=== PATIENT | female | born 1940 | race Caucasian/White ===

== ENCOUNTER 2019-08-15 08:05 | Outpatient (CLI) | payer MEDICARE, OTHER, SELFPAY ==
--- NOTE | 2019-08-15 08:27 | MM_ITS ---
WS: [id number] BILATERAL DIGITAL SCREENING MAMMOGRAPHY WITH CAD CLINICAL INFORMATION: SCREEN HISTORY: Screening mammogram. No current complaints. COMPARISON: August 12, 2018 TECHNIQUE: Bilateral CC and MLO views. FINDINGS: The breasts are composed of heterogeneous fibroglandular density tissue, which can limit the detectio n of small underlying mass lesions. No suspicious mass, asymmetry, calcifications, or architectural d istortion. No evidence of malignancy. Punctate and lucent centered calcifications. Vascular calcifica tion. MM/[place] [id number] IMPRESSION: BI-RADS: 2-Benign FOLLOW UP: 1 Year Follow-up Recommend return to annual screening mammography.
== END 2019-08-15 08:06 | disposition home or self-care (01) ==
LOC: RADSHAW 08:18
PROVIDERS: PCP Internal Medicine; Visit Provider Internal Medicine
DX: Z12.31 Encounter for screening mammogram for malignant neoplasm of breast (principal)
CPT/HCPCS: 77067

== ENCOUNTER 2020-08-16 08:10 | Outpatient (CLI) | payer MEDICARE, OTHER, SELFPAY ==
--- NOTE | 2020-08-16 08:22 | MM_ITS ---
WS: [id number] BILATERAL SCREENING DIGITAL MAMMOGRAM WITH CAD HISTORY: SCREENING COMPARISON: 08/15/2019 and 08/12/2018 Bilateral CC and MLO views submitted. Computer aided detection analyzed. Breast composition: There are scattered areas of fibroglandular density. No suspicious masses, microc alcifications or architectural distortion. Benign calcifications RIGHT breast. MM/[place] [id number] IMPRESSION: BI-RADS: 2-Benign FOLLOW UP: 1 Year Follow-up
== END 2020-08-16 08:11 | disposition home or self-care (01) ==
LOC: RADSHAW 08:16
PROVIDERS: PCP Internal Medicine; Visit Provider Internal Medicine
DX: Z12.31 Encounter for screening mammogram for malignant neoplasm of breast (principal)
CPT/HCPCS: 77067

== ENCOUNTER 2021-08-17 07:54 | Outpatient (CLI) | payer MEDICARE, OTHER, SELFPAY ==
--- NOTE | 2021-08-17 07:58 | MM_ITS ---
WS: [id number] BILATERAL SCREENING DIGITAL BREAST TOMOSYNTHESIS MAMMOGRAM WITH CAD HISTORY: SCREENING COMPARISON: 08/16/2020 and 08/15/2019 Bilateral CC and MLO views with tomosynthesis and synthetic mammography submitted. Computer aided det ection analyzed. Breast composition: The breasts are heterogeneously dense, which may obscure small masses. No suspici ous masses, microcalcifications or architectural distortion. Benign calcifications RIGHT breast. MM/[place] [id number] IMPRESSION: BI-RADS: 2-Benign FOLLOW UP: 1 Year Follow-up
== END 2021-08-17 07:55 | disposition home or self-care (01) ==
LOC: RADSHAW 07:56
PROVIDERS: PCP Internal Medicine; Visit Provider Internal Medicine
DX: Z12.31 Encounter for screening mammogram for malignant neoplasm of breast (principal)
CPT/HCPCS: 77063; 77067

== ENCOUNTER 2021-08-17 12:41 | Outpatient (CLI) | payer MEDICARE, OTHER, SELFPAY ==
--- NOTE | 2021-08-17 | XR_ITS ---
WS: [email or web address] AP standing views of both knees, 08/17/2021 Clinical Data: MEDIAL LT KNEE PAIN, STIFFNESS Comparison: None. Findings: There is bilateral medial joint compartment narrowing. There are medial spurs of the tibial plateaus and femoral condyles bilaterally. No fractures are seen on the AP views. The soft tissues are normal. XR/[place] [id number] Impression: Bilateral medial joint compartment narrowing of the knees.
== END 2021-08-17 12:42 | disposition home or self-care (01) ==
LOC: RADOUTREAD 12:44
PROVIDERS: PCP Internal Medicine; Visit Provider Internal Medicine
DX: M25.562 Pain in left knee (principal)

== ENCOUNTER 2022-08-18 07:39 | Outpatient (CLI) | payer MEDICARE, OTHER, SELFPAY ==
--- NOTE | 2022-08-18 07:53 | MM_ITS ---
WS: [id number] BILATERAL SCREENING DIGITAL TOMOSYNTHESIS MAMMOGRAM WITH CAD HISTORY: SCREENING COMPARISON: 08/17/2021, 08/16/2020 and 08/15/2019 Bilateral CC and MLO views with tomosynthesis and synthetic mammography submitted. Computer aided det ection analyzed. Breast composition: There are scattered areas of fibroglandular density. No suspicious masses, microc alcifications or architectural distortion. MM/[place] [id number] IMPRESSION: BI-RADS: 1-Negative FOLLOW UP: 1 Year Follow-up
== END 2022-08-18 07:40 | disposition home or self-care (01) ==
LOC: RAD 07:43
PROVIDERS: PCP Internal Medicine; Visit Provider Internal Medicine
DX: Z12.31 Encounter for screening mammogram for malignant neoplasm of breast (principal)
CPT/HCPCS: 77063; 77067

== ENCOUNTER 2023-01-09 13:25 | Outpatient (CLI) | payer MEDICARE, OTHER, SELFPAY ==
--- NOTE | 2023-01-09 13:33 | XR_ITS ---
WS: [email or web address] DEXA (DUAL ENERGY X-RAY ABSORPTIOMETRY) Bone mineral density was performed using a [employer] machine. HISTORY: POSTMENOPAUSAL COMPARISON: None available. Lumbar spine BMD (L1-L4): 1.090 g/cm2 T score: -0.8 Z score: 1.2 Total hip BMD: Left: 0.898 g/cm2. T score: -0.9 Z score: 1.2 Right: 0.884 g/cm2. T score: -1.0 Z score: 1.1 10 year probability of a major osteoporotic fracture is 15.1%. IMPRESSION: OSTEOPENIA based upon the WHO classification for females.
== END 2023-01-09 13:26 | disposition home or self-care (01) ==
PROVIDERS: PCP Internal Medicine; Visit Provider Internal Medicine
DX: Z78.0 Asymptomatic menopausal state (principal); M85.80 Other specified disorders of bone density and structure, unspecified site
CPT/HCPCS: 77080

== ENCOUNTER 2023-02-09 07:45 | Outpatient (CLI) | payer MEDICARE, OTHER, SELFPAY ==
--- NOTE | 2023-02-09 07:48 | CT_ITS ---
WS: [id number] CT ABDOMEN AND PELVIS NONCONTRAST HISTORY: CYSTITIS W/HEMATURIA TECHNIQUE: Imaging performed through the abdomen and pelvis. Coronal and sagittal reformats are submi tted. All CT scans at [facility] use at least one of these dose optimization techniques: auto mated exposure control; mA and/or kV adjustment per patient size (includes targeted exams where dose is matched to clinical indication); or iterative reconstruction. DLP: 269.19 mGy.cm COMPARISON: None available. Lower thorax: Diaphragmatic herniation posterior on the RIGHT contains fat only. No pneumonia. Small hiatal hernia. Mild cardiac enlargement. Liver: Normal size liver. Lobulated 8 mm low-attenuation mass in the RIGHT lobe. No bile duct dilatat ion. Gallbladder: Normal gallbladder. No pericholecystic fluid or cholelithiasis. No gallbladder wall thic kening. Pancreas: Normal size and attenuation. Normal pancreatic duct. No pancreatitis or mass. Spleen: Normal. Adrenal glands: Normal. No mass. Right kidney: Cystic mass upper pole 4.3 x 3.2 cm. No renal obstruction or calcification. Left kidney: No obstruction. Low-attenuation mass mid kidney measures 1.3 x 1.3 cm. No calcifications . Aorta: Normal abdominal aorta, no aneurysm or atherosclerosis. No free fluid, intraperitoneal air or significant lymphadenopathy. GI tract: Normal noncontrast imaging of the stomach, small bowel and colon. No obstruction or wall th ickening. Normal appendix. Abdominal wall: Negative. No hernia. Pelvis: Urinary bladder is well distended. There is a small RIGHT lateral bladder diverticulum. There is also mild asymmetric thickening of the RIGHT lateral urinary bladder wall. This is asymmetric to the LEFT side and should be further evaluated. Wall thickening measures up to 2.9 mm. Osseous structures: Thoracolumbar scoliosis. IMPRESSION: 1. No renal obstruction or ureteral calcification. 2. Small RIGHT lateral bladder wall diverticulum. 3. Mild asymmetric soft tissue thickening involving the RIGHT lateral urinary bladder. This should b e further evaluated by cystoscopy for possible neoplasm. Cystitis also within the differential. 4. Bilateral renal low-attenuation masses. These can be further evaluated by ultrasound to confirm c yst. 5. Mild cardiomegaly.
== END 2023-02-09 07:46 | disposition home or self-care (01) ==
LOC: RAD 07:45
PROVIDERS: PCP Internal Medicine; Visit Provider Internal Medicine
DX: N30.01 Acute cystitis with hematuria (principal); N32.3 Diverticulum of bladder; N32.9 Bladder disorder, unspecified; N28.89 Other specified disorders of kidney and ureter
CPT/HCPCS: 74176

== ENCOUNTER 2023-03-08 07:57 | Outpatient (CLI) | payer MEDICARE, OTHER, SELFPAY ==
--- NOTE | 2023-03-08 08:03 | MM_ITS ---
WS: [email or web address] BILATERAL 3D TOMOSYNTHESIS DIGITAL DIAGNOSTIC MAMMOGRAPHY WITH CAD CLINICAL INFORMATION: BREAST PAIN HISTORY: LEFT nipple discharge COMPARISON: 08/18/2022 TECHNIQUE: Bilateral CC, MLO, and ML views. FINDINGS: The breasts are composed of heterogeneous fibroglandular density, which can limit the detection of sm all underlying mass lesions. Palpable marker overlying the LEFT nipple. No definite new mammographic abnormalities in this location. Small ovoid nodule central LEFT breast stable over multiple prior exa minations dating back to 2016. Ultrasound is pending. RIGHT breast is unchanged. ULTRASOUND BREAST LEFT TECHNIQUE: Ultrasound left breast focused area of concern. CLINICAL INFORMATION: BREAST PAIN FINDINGS: Ultrasound LEFT breast at the areola. Dilated ducts seen in the area of concern deep to the areola. A ssociated debris. No evidence of intraductal mass or lesion. Findings are benign. Recommend return to annual screening mammography. IMPRESSION: MM/[place] [id number] BI-RADS: 2-Benign FOLLOW UP: 1 Year Follow-up Recommend return to annual screening mammography.
--- NOTE | 2023-03-08 08:56 | US_ITS ---
WS: [email or web address] BILATERAL 3D TOMOSYNTHESIS DIGITAL DIAGNOSTIC MAMMOGRAPHY WITH CAD CLINICAL INFORMATION: BREAST PAIN HISTORY: LEFT nipple discharge COMPARISON: 08/18/2022 TECHNIQUE: Bilateral CC, MLO, and ML views. FINDINGS: The breasts are composed of heterogeneous fibroglandular density, which can limit the detection of sm all underlying mass lesions. Palpable marker overlying the LEFT nipple. No definite new mammographic abnormalities in this location. Small ovoid nodule central LEFT breast stable over multiple prior exa minations dating back to 2016. Ultrasound is pending. RIGHT breast is unchanged. ULTRASOUND BREAST LEFT TECHNIQUE: Ultrasound left breast focused area of concern. CLINICAL INFORMATION: BREAST PAIN FINDINGS: Ultrasound LEFT breast at the areola. Dilated ducts seen in the area of concern deep to the areola. A ssociated debris. No evidence of intraductal mass or lesion. Findings are benign. Recommend return to annual screening mammography. IMPRESSION: US/US breast LT limited* [id number] BI-RADS: 2-Benign FOLLOW UP: 1 Year Follow-up Recommend return to annual screening mammography.
== END 2023-03-08 07:58 | disposition home or self-care (01) ==
PROVIDERS: PCP Internal Medicine; Visit Provider Internal Medicine
DX: N64.4 Mastodynia (principal)
CPT/HCPCS: 76642; 77062; G0279

== ENCOUNTER 2023-05-31 09:11 | Outpatient (CLI) | payer MEDICARE, OTHER, SELFPAY ==
--- NOTE | 2023-05-31 09:23 | CT_ITS ---
WS: [id number] CT ABDOMEN AND PELVIS WITH AND WITHOUT CONTRAST, 3 phase. HISTORY: RENAL LESION TECHNIQUE: Unenhanced 5 mm axial imaging first performed through the abdomen. Post contrast imaging t hrough the abdomen and pelvis. Oral contrast has been provided. Sagittal and coronal reformats are s ubmitted. All CT scans at [facility] use at least one of these dose optimization techniques: automated exposure control; mA and/or kV adjustment per patient size (includes targeted exams where d ose is matched to clinical indication); or iterative reconstruction. CONTRAST: Omnipaque 350; 95 mL IV. DLP: 976.42 mGy.cm COMPARISON: Noncontrast CT of 02/09/2023 Lung bases are clear. Right-sided diaphragmatic hernia. Heart is mildly enlarged. Small hiatal hernia . RIGHT kidney: 11.0 cm in length. No calcification or obstruction. Lobulated cyst in the mid kidney measures 4.5 x 3.9 cm. There is no enhancement. There is an additional too small to steven cterize 0.5 cm hypodensity in the lower pole. No solid mass. LEFT kidney: 9.7 cm in length. No cortical thinning or hydronephrosis. No calcifications. Simple cyst which does not enhance in the upper pole measuring 1.9 x 1.2 cm. There are a few additional too smal l to characterize hypodensities within the cortex. Normal spleen and liver. No adrenal mass. Normal gallbladder and pancreas. Well distended stomach with fluid. No small bowel or colon obstruction. Diffuse moderate constipation . Normal appendix. Mild diverticular disease. No ascites or free fluid. Normal aorta and mesenteric arteries. Urinary bladder is well distended. Reidentified is a RIGHT lateral bladder diverticulum. There are 2 adjacent diverticula noted on the delayed postcontrast examination. The larger diverticulum is 1.0 cm . The smaller diverticulum is just slightly posterior. No filling defect. Reidentified is the very minimal asymmetric thickening of the RIGHT lateral bladder wall. No discrete mass identified. There is a well-rounded cyst in the LEFT adnexa measuring 2.4 x 2.0 cm. This is probably ovarian in e tiology. Similar to 02/09/2023. RIGHT curvature and scoliosis lumbar spine. IMPRESSION: 1. Bilateral renal cysts. No solid mass or obstruction. 2. There are a few small too small to characterize hypodensities within each kidney. 3. RIGHT lateral urinary bladder diverticula. 4. No GI tract obstruction. No ascites.
[2023-05-31 10:05] LABS: Blood Urea Nitrogen 14 mg/dL (8-23)
[2023-05-31] MEDS: iohexol 350 mg/mL 500 mL Btl (per mL) IV (10:11)
== END 2023-05-31 09:12 | disposition home or self-care (01) ==
LOC: RAD 09:12
PROVIDERS: Radiology Neuroradiology; PCP Internal Medicine; Visit Provider Nurse Practitioner Family
DX: N28.1 Cyst of kidney, acquired (principal); N32.3 Diverticulum of bladder
CPT/HCPCS: 74178; 82565; 84520; Q9967

== ENCOUNTER 2024-03-10 09:12 | Outpatient (CLI) | payer MEDICARE, OTHER, SELFPAY ==
--- NOTE | 2024-03-10 09:17 | MM_ITS ---
WS: [email or web address] BILATERAL SCREENING DIGITAL TOMOSYNTHESIS MAMMOGRAM WITH CAD HISTORY: SCREENING COMPARISON: 03/08/2023, 08/18/2022, 08/16/2020 Bilateral CC and MLO views with tomosynthesis and synthetic mammography submitted. Computer aided det ection analyzed. Breast composition: The breasts are heterogeneously dense, which may obscure small masses. No suspici ous masses, microcalcifications or architectural distortion. Benign scattered calcifications in each breast. MM/MM scr BI tomosynthesis [id number] IMPRESSION: BI-RADS: 2 - Benign FOLLOW UP: 1 Year Follow-up
== END 2024-03-10 09:13 | disposition home or self-care (01) ==
PROVIDERS: PCP Family Medicine; Visit Provider Internal Medicine
DX: Z12.31 Encounter for screening mammogram for malignant neoplasm of breast (principal); R92.333 Mammographic heterogeneous density, bilateral breasts; R92.1 Mammographic calcification found on diagnostic imaging of breast
CPT/HCPCS: 77063; 77067

== ENCOUNTER → 2024-04-17 09:21 | Outpatient (BNVA) | payer MEDICARE, OTHER, SELFPAY | PROVIDERS: PCP Family Medicine; Visit Provider Internal Medicine Cardiovascular Disease | DX: R00.2 Palpitations (principal); I49.1 Atrial premature depolarization; I49.3 Ventricular premature depolarization; I47.10 Supraventricular tachycardia, unspecified; I49.8 Other specified cardiac arrhythmias | CPT/HCPCS: 93242 ==

== ENCOUNTER 2024-07-08 14:31 | Outpatient (CLI) | payer MEDICARE, OTHER, SELFPAY ==
--- NOTE | 2024-07-08 14:35 | CT_ITS ---
WS: [email or web address] CT ABDOMEN AND PELVIS WITH AND WITHOUT CONTRAST HISTORY: BILATERAL RENAL CYST TECHNIQUE: Unenhanced 5 mm axial imaging first performed through the abdomen. Post contrast imaging through the abdomen and pelvis. Oral contrast has not been provided. Sagittal and coronal reformats are submitted. All CT scans at [facility] use at least one of these dose optimization techniques: automated exposure control; mA and/or kV adjustment per patient size (includes targeted exams where dose is matched to clinical indication); or iterative reconstruction. CONTRAST: Omnipaque 350; 95 mL IV. DLP: 1209.34 mGy.cm COMPARISON: 05/31/2023, 02/09/2023 Lung bases are clear. Posterior RIGHT small [place] hernia containing fat only. Stable over multiple prior studies. Heart size is normal. No pericardial or pleural effusions. RIGHT kidney: 10.8 cm in length. No hydronephrosis or obstruction. Anterior mid RIGHT renal cyst measures 5.0 x 3.9 x 4.9 cm. No solid mass. There are a few very tiny too small to characterize hypodensities within the cortex otherwise. Ureter is normal. Normal ureter with no obstruction. LEFT kidney: 9.5 cm in length. No obstruction or renal calcification. Multiple cortical hypodensities are reidentified. The largest in the superior pole is a cyst measuring 1.6 x 2.1 x 2.2 cm. There are a few additional scattered too small to characterize hypodensities. Normal ureter with no obstruction. Urinary bladder: Interval change in appearance of the urinary bladder since the prior study. There is now a very mild asymmetric bladder wall thickening with enhancement. There is thickening of the RIGHT bladder wall with a long segment of enhancement. Reidentified is a RIGHT lateral bladder diverticulum which also slightly enhances. There is a smaller bladder wall diverticulum now identified. Normal size liver with is few small scattered hypodensities which do not enhance. Normal portal vein and no intrahepatic duct dilatation. Normal spleen with a few granulomata. Normal pancreas and adrenal glands. The RIGHT adrenal gland is closely associated with the RIGHT diaphragmatic hernia. Normal g allbladder. Normal aorta. Good enhancement of the mesenteric arteries. No GI tract obstruction. No appendicitis. No diverticulitis. Long-term stability LEFT adnexal cyst measuring 2.1 cm. Mild degenerative scoliosis in the lumbar spine. No destructive bone lesions. CT/CT abdomen pelvis wo/w [id number] IMPRESSION: 1. No solid renal mass or obstruction. 2. Bilateral renal cysts are reidentified. There are diffuse too small to lucero acterize hypodensities which are stable. 3. No uroepithelial lesion in the kidneys or ureters. 4. Mild progression of the RIGHT lateral bladder wall thickening with enhancem ent. There is an associated RIGHT lateral bladder diverticulum which also enhan amy. This may be due to cystitis but the enhancement and the irregularity has p rogressed. Consider cystoscopy. Infiltrating neoplasm versus cystitis. 5. Posterior RIGHT diaphragmatic hernia. Stable.
[2024-07-08 14:58] LABS: Blood Urea Nitrogen 14 mg/dL (8-23)
[2024-07-08] MEDS: iohexol 350 mg/mL 500 mL Btl (per mL) IV (15:02)
== END 2024-07-08 14:32 | disposition home or self-care (01) ==
PROVIDERS: Radiology Diagnostic Radiology; PCP Family Medicine; Visit Provider Nurse Practitioner Family
DX: N28.1 Cyst of kidney, acquired (principal); N32.89 Other specified disorders of bladder; N32.3 Diverticulum of bladder; K44.9 Diaphragmatic hernia without obstruction or gangrene; D73.89 Other diseases of spleen; N83.202 Unspecified ovarian cyst, left side; M41.86 Other forms of scoliosis, lumbar region
CPT/HCPCS: 74178; 82565; 84520

== ENCOUNTER 2025-03-11 08:51 | Outpatient (CLI) | payer MEDICARE, OTHER, SELFPAY ==
--- NOTE | 2025-03-11 09:02 | MM_ITS ---
WS: [email or web address] BILATERAL SCREENING DIGITAL TOMOSYNTHESIS MAMMOGRAM WITH CAD HISTORY: SCREENING COMPARISON: 03/10/2024, 03/08/2023, 08/17/2021 Bilateral CC and MLO views with tomosynthesis and synthetic mammography submitted. Computer aided detection analyzed. Breast composition: The breasts are heterogeneously dense, which may obscure small masses. No suspicious masses, microcalcifications or architectural distortion. Benign calcifications in each breast. MM/MM [facility] tomosynthesis [id number] IMPRESSION: BI-RADS: 2 - Benign FOLLOW UP: 1 Year Follow-up
== END 2025-03-11 08:52 | disposition home or self-care (01) ==
LOC: RAD 08:54
PROVIDERS: PCP Family Medicine; Visit Provider Family Medicine
DX: Z12.31 Encounter for screening mammogram for malignant neoplasm of breast (principal); R92.333 Mammographic heterogeneous density, bilateral breasts; R92.1 Mammographic calcification found on diagnostic imaging of breast
CPT/HCPCS: 77063; 77067